=== PATIENT | female | born 1990 | race Hispanic/Latino ===

== ENCOUNTER 2023-07-21 17:53 | Emergency (ER) | payer SELFPAY ==
[2023-07-21] MEDS ORDERED: Ketorolac Tromethamine 30 MG (1 mL) VIAL ONE (18:14)
[2023-07-21] MEDS ORDERED: HYDROcodone/Acetaminophen 5/325 mg Tablet ONE (18:59)
== END 2023-07-21 19:09 | disposition home or self-care (01) ==
LOC: ERS 17:53
DX: S83.92XA Sprain of unspecified site of left knee, initial encounter (principal); W01.0XXA Fall on same level from slipping, tripping and stumbling without subsequent striking against object, initial encounter
CPT/HCPCS: J1885